=== PATIENT | male | born 1950 | race Caucasian/White ===

== ENCOUNTER 2019-02-06 16:29 | Inpatient (IN) | payer OTHER ==
[~2019-02-06] VITALS: Ht 182.9 cm; Wt 58.1 kg
--- NOTE | 2019-02-06 16:31 | NUR ---
PATIENT BIBA TO BED 1 AT THIS TIME.
[2019-02-06 16:35] VITALS: BP 110/62
--- NOTE | 2019-02-06 16:36 | NUR ---
PT BIBA C/O CP X3 HOURS. PT REPORTS 03/10 SHARP/BURNING LT SIDED CP THAT RADIATES TO BACK.DENIES N/V. PATIENT CONNECTED TO MONITOR AND POSITIONED FOR COMFORT; HOB ELEVATED; BEDRAILS UP X1; BED DOWN.
[2019-02-06] MEDS ORDERED: ASPIRIN 325 MG TAB PO ONE (16:55)
[2019-02-06] MEDS ORDERED: NITROGLYCERIN 0.4 MG TAB SL ONE (16:55)
[2019-02-06 17:18] LABS: BASOPHILS # (AUTO) 0.1 K/uL (0.00-0.22); BASOPHILS % (AUTO) 1.4 % (0.0-2.0); EOSINOPHILS # (AUTO) 0.2 K/uL (0-0.4); HEMATOCRIT 31.9 % (36-52); LYMPHOCYTES # (AUTO) 1.5 K/uL (2.0-11.5); LYMPHOCYTES % (AUTO) 27.9 % (20.5-51.1); MEAN CORPUSCULAR HEMOGLOBIN 22 pg (27-31); MEAN CORPUSCULAR HGB CONC 31 g/dL (33-37); MEAN CORPUSCULAR VOLUME 68.7 fL (80-94); MONOCYTES # (AUTO) 0.5 K/uL (0.8-1.0); MONOCYTES % (AUTO) 8.7 % (1.7-9.3); NEUTROPHILS # (AUTO) 3.3 K/uL (1.8-7.7); PLATELET COUNT (AUTO) 401 K/uL (140-450); RED BLOOD CELL COUNT(AUTO) 4.65 MIL/uL (4.20-6.10); RED CELL DISTRIBUTION WIDTH 21.6 % (11.6-13.7); WHITE BLOOD COUNT (AUTO) 5.5 K/uL (4.8-10.8)
[2019-02-06 17:34] LABS: ALBUMIN 3.2 g/dL (3.4-5.0); ANION GAP 13.6 (8-16); CARBON DIOXIDE 26.4 mmol/L (21-32); CREATININE 0.9 mg/dL (0.7-1.3); TOTAL BILIRUBIN 0.3 mg/dL (0.0-1.0)
[2019-02-06 17:42] LABS: CREATINE KINASE MB 1.4 ng/mL (0-3.6)
[2019-02-06] MEDS ORDERED: NACL 0.9% 1,000 ML IV SCH (18:19)
[2019-02-06] MEDS ORDERED: ZOLPIDEM 5 MG TAB PO PRN (18:20)
[2019-02-06] MEDS ORDERED: ACETAMINOPHEN 325 MG TAB PO PRN (18:20)
[2019-02-06] MEDS ORDERED: HYDROcodone/APAP 5/325 MG 1 TAB TAB PO PRN (18:20)
[2019-02-06] MEDS ORDERED: DOCUSATE SODIUM 100 MG GELCAP PO PRN (18:20)
[2019-02-06] MEDS ORDERED: LORazepam 2 MG/ML VIAL IM/IVP PRN (18:20)
[2019-02-06] MEDS ORDERED: ONDANSETRON 4 MG/2 ML VIAL IM/IVP PRN (18:20)
[2019-02-06] MEDS ORDERED: MORPHINE SULFATE 2 MG/ML SYR IVP PRN (18:20)
--- NOTE | 2019-02-06 18:30 | NUR ---
received bedside report from er nurse. patient is awake, alert and orientedx3. no signs of distress on ra. fall risk protocol in place, patient ambulates w cane. skin is intact. iv on R HAND 22g. clean, dry and intact. tele monitor in place. vitals are b/p 111/66 hr 71 99% ra rr 20 98.3 temp. patient is continent. mrsa done. bed in low position. call light within reach. will continue to monitor
--- NOTE | 2019-02-06 18:30 | NUR ---
Pt transferred to Tele via [employer], report given to Jennifer Mark. Pt stable.
[2019-02-06 18:58] LABS: PROTHROMBIN TIME 10.9 secs (10.8-13.4)
[2019-02-06 19:03] LABS: THYROID STIMULATING HORMONE 2.46 uIU/mL (0.34-3.74)
--- NOTE | 2019-02-06 19:18 | NUR ---
gave bedside report to pantograph setter nurse. patient endorsed in stable condition
--- NOTE | 2019-02-06 19:19 | NUR ---
RECEIVED REPORT FROM AM NURSE ERIN. PT IN BED, AWAKE, ALERT AND ORIENTED. NO VISIBLE SIGNS OF DISTRESS. RT HAND IV 22G INTACT. SKIN INTACT. NO C/O CHEST PAIN. SAFETY PRECAUTIONS IN PLACE, SIDE RAILS UP X 2, BED IN LOW POSITION, YELLOW SOCKS ON. CALL LIGHT WITH IN REACH.
[2019-02-06 20:00] VITALS: BP 119/68
[2019-02-06] MEDS ORDERED: NITROGLYCERIN 0.4 MG TAB SL PRN (20:35)
[2019-02-06] MEDS ORDERED: SIMVASTATIN 20 MG TAB PO SCH (21:00)
--- NOTE | 2019-02-06 21:10 | NUR ---
IV PULLED OUT BY PT, CANNULA INTACT. PT REFUSED IV REINSERTION. WILL INFORM .
--- NOTE | 2019-02-06 21:11 | NUR ---
ZOCOR GIVEN PO, PT TOLERATED WELL.
--- NOTE | 2019-02-06 21:15 | NUR ---
NOTIFIED AND ALLOWS NO REINSERTION OF IV.
--- NOTE | 2019-02-06 22:45 | NUR ---
WENT IN TO TALK TO PT ABOUT THE NEED FOR IV INSERTION. PT COMPLIED. WILL INSERT IV
--- NOTE | 2019-02-06 23:40 | NUR ---
IV INSERTED. 24G TO RT FA, S/L. 3 ATTEMPTS DONE.
[2019-02-07 00:05] VITALS: BP 100/44
--- NOTE | 2019-02-07 00:40 | NUR ---
PT SLEEPING, NO VISIBLE SIGNS OF DISTRESS. RESPIRATIONS EVEN, UNLABORED AND WNL.
--- NOTE | 2019-02-07 02:45 | NUR ---
PT COMPLAINED ABOUT ROOMMATE SNORING IN OTHER BED. WILL TRY TO FIND HIM EAR BUDS.
--- NOTE | 2019-02-07 03:55 | NUR ---
PT MOVED TO 119B.
[2019-02-07 04:05] VITALS: BP 108/58
[2019-02-07 05:20] LABS: APPEARANCE,URINE CLEAR (CLEAR); BILIRUBIN,URINE NEGATIVE (NEGATIVE); BLOOD, URINE NEGATIVE (NEGATIVE); COLOR,URINE YELLOW (YELLOW); LEUKOCYTE ESTERASE ,URINE NEGATIVE (NEGATIVE); NITRITE, URINE NEGATIVE (NEGATIVE); UGLUCOSE NEGATIVE (NEGATIVE)
[2019-02-07 05:23] LABS: BARBITURATE, URINE NEG. ng/ml (NEG <=200); BENZODIAZEPINE, URINE NEG. ng/mL (NEG <=200); CANNABINOID, URINE NEG. ng/mL (NEG <=50); COCAINE, URINE NEG. ng/mL (NEG <=300); OPIATE, URINE NEG. ng/mL (NEG <=2000); PHENCYCLIDINE SCREEN,URINE NEG. ng/mL (NEG <=25)
--- NOTE | 2019-02-07 05:30 | NUR ---
PT SLEEPING COMFORTABLY IN BED. NO S/S OF DISTRESS NOTED. RESPIRATIONS EVEN, UNLABORED, AND WNL. WILL CONTINUE TO MONITOR.
--- NOTE | 2019-02-07 07:27 | NUR ---
REPORT GIVEN TO AM NURSE AT BEDSIDE. PT IN STABLE CONDITION.
--- NOTE | 2019-02-07 07:28 | NUR ---
RECEIVED BEDSIDE REPORT FROM UNDERCOVER OPERATOR NURSE. PATIENT IS AWAKE, ALERT AND ORIENTEDX3. NO SIGNS OF DISTRESS ON RA. SKIN IS INTACT. IV ON R FA 24G SL. CLEAN, DRY AND INTACT. PATIENT AMBULATES W CANE. FALL RISK PROTOCOL IN PLACE. PATIENT IS CONTINENT. TELE MONITOR IN PLACE. BED IN LOW POSITION. CALL LIGHT WITHIN REACH. WILL CONTINUE TO MONITOR THE PATIENT. PATIENT ABLE TO MAKE NEEDS KNOWN.
[2019-02-07 07:39] LABS: BASOPHILS # (AUTO) 0.1 K/uL (0.00-0.22); BASOPHILS % (AUTO) 2.1 % (0.0-2.0); EOSINOPHILS # (AUTO) 0.3 K/uL (0-0.4); EOSINOPHILS % (AUTO) 6.9 % (0.0-4.0); HEMATOCRIT 29.9 % (36-52); HEMOGLOBIN 9.3 g/dL (12.0-18.0); LYMPHOCYTES # (AUTO) 1.9 K/uL (2.0-11.5); LYMPHOCYTES % (AUTO) 48.1 % (20.5-51.1); MEAN CORPUSCULAR HEMOGLOBIN 22 pg (27-31); MEAN CORPUSCULAR HGB CONC 31 g/dL (33-37); MEAN CORPUSCULAR VOLUME 69.1 fL (80-94); MONOCYTES # (AUTO) 0.4 K/uL (0.8-1.0); MONOCYTES % (AUTO) 9.4 % (1.7-9.3); NEUTROPHILS # (AUTO) 1.3 K/uL (1.8-7.7); NEUTROPHILS % (AUTO) 33.5 % (42.2-75.2); PLATELET COUNT (AUTO) 336 K/uL (140-450); RED BLOOD CELL COUNT(AUTO) 4.33 MIL/uL (4.20-6.10); RED CELL DISTRIBUTION WIDTH 21.9 % (11.6-13.7); WHITE BLOOD COUNT (AUTO) 3.9 K/uL (4.8-10.8)
[2019-02-07 08:00] VITALS: BP 113/56
[2019-02-07 08:24] LABS: CHOL/HDL RATIO 3.3 (1-4.5)
[2019-02-07 08:33] LABS: ANION GAP 11.9 (8-16); CARBON DIOXIDE 28.1 mmol/L (21-32); CREATININE 0.9 mg/dL (0.7-1.3)
--- NOTE | 2019-02-07 08:38 | NUR ---
PATIENT HAS BEEN SCREENED AND CATEGORIZED HIGH NUTRITION RISK. PATIENT WILL BE SEEN WITHIN 1-2 DAYS OF ADMISSION. 02/07/19-02/08/[address]
[2019-02-07] MEDS ORDERED: METOPROLOL 50 MG TAB PO SCH (09:00)
[2019-02-07] MEDS ORDERED: LISINOPRIL 5 MG TAB PO SCH (09:00)
[2019-02-07] MEDS: ASPIRIN 81 MG TAB.CHEW PO SCH (09:13)
--- NOTE | 2019-02-07 09:19 | NUR ---
ADMINISTERED MEDS. PATIENT TOLERATED WELL. EDUCATED ON SIDE EFFECTS. WILL CONTINUE TO MONITOR THE PATIENT
--- NOTE | 2019-02-07 10:00 | NUR ---
CALLED [facility] AT [phone]. THEY SAID THEY DONT HAVE THIS PATIENT ON FILE, THEY TRANSFERRED ME TO [facility] AND THEY ALSO DONT HAVE THE PATIENT ON FILE. UNABLE TO INTERROGATE THE PACEMAKER AT THIS TIME. WILL CONTINUE TO CHECK OTHER COMPANIES
[2019-02-07 12:00] VITALS: BP 129/76
--- NOTE | 2019-02-07 12:38 | NUR ---
PT SITTING UP IN BED EATING LUNCH. NO OBVIOUS SIGNS OF DISTRESS AND NO REQUESTS FROM PT.
--- NOTE | 2019-02-07 14:00 | NUR ---
PATIENT IS SLEEPING. NO SIGNS OF DISTRESS. WILL CONTINUE TO MONITOR THE PATIENT
--- NOTE | 2019-02-07 15:30 | NUR ---
02/07/19 RD INITIAL ASSESSMENT COMPLETED PLEASE REFER TO NUTRITION ASSESSMENT UNDER CARE ACTIVITY FOR ESTIMATED NUTRITIONAL NEEDS. 1. CONTINUE CARDIAC DIET TOLERATED 2. RECOMMEND ENSURE BID 3. RECOMMEND MVI 4. HEALTHY EATING EDUCATION WAS PROVIDED 5. RD TO FOLLOW-UP 2-3 DAYS, HIGH RISK ABIDA FLEMING, RD
--- NOTE | 2019-02-07 15:51 | NUR ---
CALLED [facility]. THEY ALSO DONT HAVE THE PATIENT ON FILE FOR PACEMAKER
[2019-02-07 16:00] VITALS: BP 129/71
--- NOTE | 2019-02-07 16:20 | NUR ---
PT SITTING IN BED RESTING WITH NO REQUESTS AT THIS TIME AND NO OBVIOUS SIGNS OF DISTRESS.
--- NOTE | 2019-02-07 16:39 | NUR ---
called [employer] at . they said they will have a rep call me to come and interrogate the pacemaker.
--- NOTE | 2019-02-07 16:50 | NUR ---
JOYCE FROM [employer] CALLED AND WANTED TO KNOW THE REASON FOR INTERROGATION OF THE PACEMAKER. JOYCE SPOKE TO DR NUÑEZ AND DR NUÑEZ EXPLAINED TO HIM THE NEED FOR INTERROGATION, PATIENT IS A POOR HISTORIAN W CHEST PAIN AND LOW EF
--- NOTE | 2019-02-07 19:30 | NUR ---
gave bedside report to debeader nurse. patient endorsed in stable condition. iv was removed by patient, he said accidentally. endorsed debeader to place a new one
--- NOTE | 2019-02-07 19:30 | NUR ---
RECEIVED BEDSIDE REPORT FROM DAY NURSE. PATIENT IS AWAKE, ALERT, AND COOPERATIVE. RESPIRATION EVEN UNLABORED ON ROOM AIR. NO DISTRESS NOTED. SKIN IS WARM AND DRY. PATIENT IS AMBULATORY AND USES ASSISTIVE DEVICE. FALL RISK PROTOCOL IN PLACE. PLAN OF CARE WAS DISCUSSED. ALL SAFETY MEASURES IN PLACE. BED IS AT LOW POSITION. CALL LIGHT WITHIN REACH AND VERBALIZES ITS USE. WILL CONTINUE TO MONITOR.
[2019-02-07 20:00] VITALS: BP 122/64
--- NOTE | 2019-02-07 20:00 | NUR ---
INITIAL ASSESSMENT DONE. VITALS WERE TAKEN. PATIENT CONDITION STABLE. WILL CONTINUE TO MONITOR
--- NOTE | 2019-02-07 21:00 | NUR ---
PATIENT REFUSED IV INSERTION. EDUCATED THE RISK AND BENEFITS OF IT 2X STILL REFUSED
--- NOTE | 2019-02-07 23:00 | NUR ---
PATIENT IN BED WATCHING TV RESPIRATION EVEN UNLABORED ON ROOM AIR. DENIES PAIN. WILL CONTINUE TO MONITOR
[2019-02-08] VITALS: BP 118/65
--- NOTE | 2019-02-08 | NUR ---
VITALS WERE TAKEN. PATIENT CONDITION STABLE. NO DISTRESS NOTED. WILL CONTINUE TO MONITOR
--- NOTE | 2019-02-08 02:00 | NUR ---
PATIENT SLEEPING RESPIRATION EVEN UNLABORED ON ROOM AIR. NO DISTRESS NOTED WILL CONTINUE TO MONITOR
[2019-02-08 04:00] VITALS: BP 116/66
--- NOTE | 2019-02-08 04:00 | NUR ---
VITALS WERE TAKEN PATIENT CONDITION STABLE NO DISTRESS NOTED. WILL CONTINUE TO MONITOR
--- NOTE | 2019-02-08 07:18 | NUR ---
ENDORSED PATIENT TO DAY SHIFT NURSE. PATIENT CONDITION STABLE.
--- NOTE | 2019-02-08 07:19 | NUR ---
RECEIVED BEDSIDE SHIFT REPORT FROM NIGHT NURSE. PT SLEEPING IN BED WITH BREATHING EQUAL AND UNLABORED WITH NO OBVIOUS SIGNS OF DISTRESS. PT AROUSABLE BY VOICE AOX3 UNABLE TO RECALL HOSPITAL LOCATION. PT REMOVED IV PREVIOUS EVENING AND WILL HAVE TO HAVE A NEW ONE PLACED LATER. ALL SAFETY MEASURES IN PLACE, WILL CONTINUE TO MONITOR.
[2019-02-08 07:54] LABS: ANION GAP 10.2 (8-16); CARBON DIOXIDE 26.7 mmol/L (21-32); CREATININE 0.8 mg/dL (0.7-1.3); POTASSIUM 3.9 mmol/L (3.5-5.1)
[2019-02-08 08:00] VITALS: BP 120/70
[2019-02-08 08:09] LABS: BASOPHILS # (AUTO) 0.1 K/uL (0.00-0.22); EOSINOPHILS # (AUTO) 0.3 K/uL (0-0.4); HEMOGLOBIN 9.8 g/dL (12.0-18.0); LYMPHOCYTES # (AUTO) 1.6 K/uL (2.0-11.5); LYMPHOCYTES % (AUTO) 36.3 % (20.5-51.1); MEAN CORPUSCULAR HEMOGLOBIN 21 pg (27-31); MEAN CORPUSCULAR HGB CONC 31 g/dL (33-37); MEAN CORPUSCULAR VOLUME 69.3 fL (80-94); MONOCYTES # (AUTO) 0.4 K/uL (0.8-1.0); NEUTROPHILS % (AUTO) 45.7 % (42.2-75.2); PLATELET COUNT (AUTO) 337 K/uL (140-450); RED BLOOD CELL COUNT(AUTO) 4.62 MIL/uL (4.20-6.10); WHITE BLOOD COUNT (AUTO) 4.3 K/uL (4.8-10.8)
[2019-02-08] MEDS: ASPIRIN 81 MG TAB.CHEW PO SCH (08:09)
[2019-02-08 08:10] LABS: MAGNESIUM 1.7 mg/dL (1.8-2.4); PHOSPHORUS 3.4 mg/dL (2.5-4.9)
[2019-02-08 08:12] LABS: FOLIC ACID 13.9 ng/mL (>3.0)
--- NOTE | 2019-02-08 08:17 | NUR ---
ADMINISTERED AM MEDICATION REVIEWED INDICATION WITH PATIENT, PER DR. NUÑEZ "OKAY" NOT TO INSERT IV LINE WITH PLANS FOR POSSIBLE DISCHARGE TODAY.
[2019-02-08 09:20] LABS: BASOPHILS % (AUTO) 2.1 % (0.0-2.0); EOSINOPHILS % (AUTO) 6.4 % (0.0-4.0); MONOCYTES % (AUTO) 9.5 % (1.7-9.3)
--- NOTE | 2019-02-08 10:15 | NUR ---
NOTIFIED DR. NUÑEZ IN REGARDS TO MAGNESIUM LEVELS 1.7
--- NOTE | 2019-02-08 11:20 | NUR ---
PT LAYING IN BED RESTING WITH NO REQUESTS ASIDE FROM ASKING WHEN LUNCH WILL BE HERE. STATES HE IS COMFORTABLE WAITING FOR LUNCH TO ARRIVE AND DENIES ANY PAIN, DISCOMFORT AND IS FREE OF ANY OBVIOUS SIGNS OF DISTRESS.
[2019-02-08 12:00] VITALS: BP 112/62
[2019-02-08 12:11] LABS: HEPATITIS A ANTIBODY IGM Negative (Negative); HEPATITIS B CORE AB TOTAL Negative (Negative); HEPATITIS B SURFACE ANTIBODY Non Reactive (.); HEPATITIS B SURFACE ANTIGEN Negative (Negative)
[2019-02-08] MEDS ORDERED: MAGNESIUM OXIDE 400 MG TAB PO SCH (12:49)
--- NOTE | 2019-02-08 13:25 | NUR ---
ADMINISTERED MEDICATIONS AND EXPLAINED INDICATION AND SIDE EFFECTS TO PT. PT HAS NO REQUESTS AT THIS TIME AND IS FREE OF OBVIOUS SIGNS OF ACUTE DISTRESS.
--- NOTE | 2019-02-08 15:10 | NUR ---
PT SLEEPING IN BED AROUSED BY OPENING OF DOOR. NO OBVIOUS SIGNS OF DISTRESS AND NO REQUESTS AT THIS TIME.
[2019-02-08 16:02] VITALS: BP 120/74
--- NOTE | 2019-02-08 17:12 | NUR ---
PT RESTING IN BED, NO C/O PAIN OR DISCOMFORT. WILL CONTINUE TO MONITOR.
--- NOTE | 2019-02-08 19:28 | NUR ---
RECEIVED FROM AM RN IN BED SITTING UP AND WATCHING TV. CALM AND QUIET. ABLE TO VERBALIZE NEEDS WELL IN [place]. TELEMETRY MONITORING AT THIS TIME. PACING IN MONITOR. SKIN INTACT. DX. OF CHEST PAIN. CARE PLANS FOR THE NIGHT DISCUSSED WITH HIM AND ORIENTED TO CALL LIGHT USE. PLACED ON BED ALARM .
--- NOTE | 2019-02-08 19:28 | NUR ---
ENDORSED POC TO HAM CLERK RN. PT IN STABLE CONDITION.
--- NOTE | 2019-02-08 19:56 | NUR ---
PT. HAD A FIT AND SHOUTED HE DOES NOT WANT ANY BED ALARM ON BED AND NO TELEMETRY MONITORING. PT. THREW HIS TELE BOX ON THE FLOOR. "NO MONITOR" IN LOUD VOICE. INFORMED RESIDENT MD STORY RE: PT. DON'T WANT INSPECTOR CRYSTAL. AWARE AND STATED "OK"
[2019-02-08 20:00] VITALS: BP 122/68
[2019-02-09 00:12] VITALS: BP 118/64
--- NOTE | 2019-02-09 00:15 | NUR ---
PT. AWAKE AND PROVIDED WITH SNACK REQUESTED. REFUSED TELEMETRY MONITORING STILL.
--- NOTE | 2019-02-09 02:10 | NUR ---
CHECKED ON PT. SLEEPING WELL. CALL LIGHT WITH IN REACH.
--- NOTE | 2019-02-09 04:00 | NUR ---
SLEEPING. NO RESTLESSNESS. CALL LIGHT WITH IN REACH.
--- NOTE | 2019-02-09 07:07 | NUR ---
ENDORSED TO THE NEXT RN FOR CONTINUITY OF CARE.
--- NOTE | 2019-02-09 07:08 | NUR ---
RECEIVED ENDORSEMENT FROM CIVIL DIVISION DEPUTY SHERIFF NURSE. PATIENT IS AAOX4. RESPIRATIONS ARE EVEN AND UNLABORED ON ROOM AIR. DENIES ANY PAIN AT THIS TIME. PT REFUSED TELEMETRY BOX. PLAN OF CARE WAS REVIEWED WITH PT. PT VERBALIZED UNDERSTANDING. SAFETY MEASURES IN PLACE, CALL LIGHT WITHIN REACH. WILL CONTINUE TO MONITOR.
[2019-02-09 07:51] LABS: ANION GAP 12.9 (8-16); CARBON DIOXIDE 25.9 mmol/L (21-32); CREATININE 0.7 mg/dL (0.7-1.3); POTASSIUM 3.8 mmol/L (3.5-5.1)
[2019-02-09 07:53] LABS: BASOPHILS # (AUTO) 0.1 K/uL (0.00-0.22); BASOPHILS % (AUTO) 1.7 % (0.0-2.0); EOSINOPHILS # (AUTO) 0.2 K/uL (0-0.4); HEMATOCRIT 34.3 % (36-52); HEMOGLOBIN 10.6 g/dL (12.0-18.0); LYMPHOCYTES # (AUTO) 1.7 K/uL (2.0-11.5); LYMPHOCYTES % (AUTO) 38.7 % (20.5-51.1); MEAN CORPUSCULAR HEMOGLOBIN 21 pg (27-31); MEAN CORPUSCULAR HGB CONC 31 g/dL (33-37); MEAN CORPUSCULAR VOLUME 69.2 fL (80-94); MONOCYTES # (AUTO) 0.4 K/uL (0.8-1.0); NEUTROPHILS % (AUTO) 45.3 % (42.2-75.2); PLATELET COUNT (AUTO) 294 K/uL (140-450); RED BLOOD CELL COUNT(AUTO) 4.96 MIL/uL (4.20-6.10); RED CELL DISTRIBUTION WIDTH 21.5 % (11.6-13.7); WHITE BLOOD COUNT (AUTO) 4.3 K/uL (4.8-10.8)
[2019-02-09 08:00] VITALS: BP 120/60
[2019-02-09 08:01] LABS: MAGNESIUM 2.1 mg/dL (1.8-2.4); PHOSPHORUS 3.7 mg/dL (2.5-4.9)
[2019-02-09] MEDS: ASPIRIN 81 MG TAB.CHEW PO SCH (08:40)
[2019-02-09 08:52] LABS: EOSINOPHILS % (AUTO) 4.9 % (0.0-4.0); MONOCYTES % (AUTO) 9.4 % (1.7-9.3)
[2019-02-09 12:00] VITALS: BP 111/61
--- NOTE | 2019-02-09 14:46 | NUR ---
ASKED FRONT END SOFTWARE ENGINEER HOMERO FOR BUS PASS- PT IS HOMELESS AND REQUESTING HELP WITH TRANSPORTATION AFTER D/C. WILL CALL [facility] FOR FOOD FOR D/C.
--- NOTE | 2019-02-09 14:47 | NUR ---
GAVE PT DISCHARGE INSTRUCTIONS AND ANSWERED ALL OF PT QUESTIONS. MEDICATION RECONCILIATION GIVEN. INSTRUCTED TO FOLLOW UP WITH PRIMARY WITHIN 3-5 DAYS AND FOLLOW UP WITH ONCOLOGIST WELL. PT IN STABLE CONDITION WAITING FOR HOMELESS FOOD PACKET AND BUS PASS. Addendum: 02/09/19 at 1452 by La Nava RN PT VERBALIZED COMPLETE UNDERSTANDING OF ALL DISCHARGE TEACHING.
== END 2019-02-09 15:40 | disposition home or self-care (01) | DRG 206 ==
LOC: MED 16:29 → MTU 18:06
PROVIDERS: ADMIT General Practice; ATTEND General Practice
DX: M94.0 Chondrocostal junction syndrome [Tietze] (principal); E44.0 Moderate protein-calorie malnutrition; Z68.1 Body mass index [BMI] 19.9 or less, adult; I50.32 Chronic diastolic (congestive) heart failure; D64.9 Anemia, unspecified; E87.8 Other disorders of electrolyte and fluid balance, not elsewhere classified; E83.42 Hypomagnesemia; I34.0 Nonrheumatic mitral (valve) insufficiency; D72.819 Decreased white blood cell count, unspecified; Z59.0 Homelessness; Z87.891 Personal history of nicotine dependence; Z95.0 Presence of cardiac pacemaker; I25.2 Old myocardial infarction; Z85.118 Personal history of other malignant neoplasm of bronchus and lung; Z85.47 Personal history of malignant neoplasm of testis; Z90.49 Acquired absence of other specified parts of digestive tract
CPT/HCPCS: 36415; 71045; 80048; 80053; 80305; 81003; 82550; 82553; 82607; 82728; 82746; 83036; 83540; 83690; 83735; 83880; 84100; 84134; 84443; 84484; 85025; 85045; 85610; 85730; 86704; 86706; 86708; 86709; 86803; 87081; 87340; 93005; 99285; J7030; Q0092

== ENCOUNTER 2019-02-09 23:21 | Emergency (ER) | payer OTHER ==
[~2019-02-09] VITALS: Ht 182.9 cm; Wt 58.5 kg
[2019-02-09 23:25] VITALS: BP 104/68
--- NOTE | 2019-02-09 23:25 | NUR ---
68 y/o M biba with c/o L chest pain x2 hours. AAOx4. 7/10 pain, sharp and burning. pain radiates to L upper upper and shoulder. pacemaker noted to l upper chest. HR 68, Heart sounds present. cap refill <3. no JVD noted. Pt previously admitted and was discharged today from the hospital. ERMD notified. Will continue to monitor.
--- NOTE | 2019-02-09 23:25 | NUR ---
PATIENT BIB EMS TO ER BED 6.
--- NOTE | 2019-02-09 23:32 | NUR ---
EKG PERFORMED AT BEDSIDE
[2019-02-09 23:56] LABS: BASOPHILS # (AUTO) 0.1 K/uL (0.00-0.22); BASOPHILS % (AUTO) 1.2 % (0.0-2.0); EOSINOPHILS # (AUTO) 0.1 K/uL (0-0.4); EOSINOPHILS % (AUTO) 1.4 % (0.0-4.0); HEMATOCRIT 32.5 % (36-52); HEMOGLOBIN 9.9 g/dL (12.0-18.0); LYMPHOCYTES # (AUTO) 1.6 K/uL (2.0-11.5); LYMPHOCYTES % (AUTO) 22.1 % (20.5-51.1); MEAN CORPUSCULAR HEMOGLOBIN 21 pg (27-31); MEAN CORPUSCULAR HGB CONC 31 g/dL (33-37); MEAN CORPUSCULAR VOLUME 68.9 fL (80-94); MONOCYTES # (AUTO) 0.5 K/uL (0.8-1.0); MONOCYTES % (AUTO) 6.3 % (1.7-9.3); PLATELET COUNT (AUTO) 335 K/uL (140-450); RED BLOOD CELL COUNT(AUTO) 4.71 MIL/uL (4.20-6.10); RED CELL DISTRIBUTION WIDTH 21.5 % (11.6-13.7); WHITE BLOOD COUNT (AUTO) 7.2 K/uL (4.8-10.8)
[2019-02-10 00:18] LABS: ALBUMIN 3.2 g/dL (3.4-5.0); ANION GAP 12.9 (8-16); CARBON DIOXIDE 26.5 mmol/L (21-32); CREATININE 0.9 mg/dL (0.7-1.3); POTASSIUM 3.4 mmol/L (3.5-5.1); TOTAL BILIRUBIN 0.2 mg/dL (0.0-1.0)
--- NOTE | 2019-02-10 00:30 | NUR ---
Pt awake and laying supine. VSS at this time. Will continue to monitor.
[2019-02-10] MEDS ORDERED: KETOROLAC 30 MG/ML VIAL IVP ONE (00:55)
--- NOTE | 2019-02-10 01:30 | NUR ---
pt asleep, visible chest rise and fall. bedrails x2 up,bed in lowest postion. will continue to monitor.
--- NOTE | 2019-02-10 01:35 | NUR ---
LAB AT BEDSIDE.
--- NOTE | 2019-02-10 01:42 | NUR ---
EKG PERFORMED AT BEDSIDE
--- NOTE | 2019-02-10 02:50 | NUR ---
Found pt walking around room. Pt took out IV line, when asked about it, stated, " it hurt so I just took it out." EKG leads, pulse ox, and BP cuff found on the floor. Explained to pt the importance of monitoring system. Pt reattached to monitor. VSS at this time. Will continue to monitor.
[2019-02-10 03:57] VITALS: BP 114/57
--- NOTE | 2019-02-10 03:58 | NUR ---
Pt laying down in bed. VSS at this time. Will continue to monitor.
--- NOTE | 2019-02-10 04:48 | NUR ---
pt asleep. visible chest rise and fall. arousable to name and light touch. bed in lowest position. will continue to monitor.
--- NOTE | 2019-02-10 05:13 | NUR ---
Patient discharged with v/s stable. Written and verbal after care instructions given and explained. Patient alert, oriented and verbalized understanding of instructions. Ambulatory with steady gait. All questions addressed prior to discharge. ID band removed. Patient advised to follow up with PMD. Rx of Motrin given. Patient educated on indication of medication including possible reaction and side effects. Opportunity to ask questions provided and answered. Bus pass and homeless resources provided to patient.
== END 2019-02-10 05:13 | disposition home or self-care (01) ==
LOC: MED 23:21
DX: R07.89 Other chest pain (principal); R06.02 Shortness of breath; I50.9 Heart failure, unspecified; I25.10 Atherosclerotic heart disease of native coronary artery without angina pectoris; R79.0 Abnormal level of blood mineral; Z85.118 Personal history of other malignant neoplasm of bronchus and lung; Z59.0 Homelessness
CPT/HCPCS: 36415; 71045; 80053; 83735; 83880; 84484; 85025; 93005; 96374; 99284; J1885; Q0092

== ENCOUNTER 2019-08-29 07:00 | Inpatient (IN) | payer OTHER ==
[~2019-08-29] VITALS: Ht 182.9 cm; Wt 58.5 kg
[2019-08-29 07:01] VITALS: BP 138/70
[2019-08-29] MEDS ORDERED: ASPIRIN 81 MG TAB.CHEW PO ONE (07:05)
[2019-08-29] MEDS ORDERED: NACL 0.9% 1,000 ML IV ONE (07:05)
--- NOTE | 2019-08-29 07:10 | NUR ---
69 Y/O MALE BIBA ALC C/O CHEST PAIN. PT STATES HE WAS SEEN LAST NIGHT AT [facility] FOR SAME PAIN. 05/10 PAIN NEXT TO PACEMAKER THAT RADIATES TO BACK. PACEMAKER NOTED IN THE UPPER LEFT CHEST. HR AT 75BPM; DENIES SOB. A/OX4; FOLLOWS COMMANDS. BREATHING IS UNLABORED AND SYMMETRICAL. DENIES N/V/D. HAND PIPE FITTER SUPERVISOR MAINTENANCE STRONG. ERMD MADE AWARE. SIDE RAILSX1. PLACED ON COST ESTIMATOR. MEDHX: ANXIETY, PACEMAKER, ARTHRITIS, CA RX:DENIES NKDA
--- NOTE | 2019-08-29 07:12 | NUR ---
RECEIVED REPORT FROM ADÁN PLASENCIA.
--- NOTE | 2019-08-29 07:26 | NUR ---
EMT AT BEDSIDE FOR EKG.
--- NOTE | 2019-08-29 07:27 | NUR ---
DR. NELSON EVALUATING PT AT BEDSIDE.
[2019-08-29 08:06] LABS: BASOPHILS % (AUTO) 0.2 % (0.0-2.0); EOSINOPHILS # (AUTO) 0.4 K/uL (0-0.4); HEMATOCRIT 33.6 % (36-52); HEMOGLOBIN 10.2 g/dL (12.0-18.0); LYMPHOCYTES # (AUTO) 1.3 K/uL (2.0-11.5); LYMPHOCYTES % (AUTO) 32.5 % (20.5-51.1); MEAN CORPUSCULAR HEMOGLOBIN 23 pg (27-31); MEAN CORPUSCULAR HGB CONC 31 g/dL (33-37); MEAN CORPUSCULAR VOLUME 73.8 fL (80-94); MONOCYTES # (AUTO) 0.3 K/uL (0.8-1.0); MONOCYTES % (AUTO) 8.3 % (1.7-9.3); PLATELET COUNT (AUTO) 482 K/uL (140-450); RED BLOOD CELL COUNT(AUTO) 4.55 MIL/uL (4.20-6.10); RED CELL DISTRIBUTION WIDTH 18.1 % (11.6-13.7); WHITE BLOOD COUNT (AUTO) 4.1 K/uL (4.8-10.8)
[2019-08-29 08:13] LABS: ANION GAP 14.7 (8-16); CARBON DIOXIDE 26.6 mmol/L (21-32); CREATININE 0.9 mg/dL (0.7-1.3); POTASSIUM 4.3 mmol/L (3.5-5.1)
[2019-08-29] MEDS ORDERED: KETOROLAC 30 MG/ML VIAL IVP ONE (08:15)
[2019-08-29 08:18] LABS: ALBUMIN 3.4 g/dL (3.4-5.0); TOTAL BILIRUBIN 0.3 mg/dL (0.0-1.0)
[2019-08-29] MEDS ORDERED: ASPI-1718 PO (08:57)
--- NOTE | 2019-08-29 09:33 | NUR ---
OBTAINED LEFT ELBOW WOUND CULTURE PER REQUEST DR. BURKETT.
--- NOTE | 2019-08-29 10:05 | NUR ---
Patient will be admitted to care of DR. CABALLERO. Admited to TELE. Will go to room 107B. Belongings list completed. Report to ANGEL LUIS PLASENCIA.
[2019-08-29] MEDS ORDERED: NACL 0.9% 1,000 ML IV SCH (10:53)
[2019-08-29 10:55] VITALS: BP 118/53
[2019-08-29] MEDS ORDERED: HYDROcodone/APAP 5/325 MG 1 TAB TAB PO PRN (10:55)
[2019-08-29] MEDS ORDERED: MORPHINE SULFATE 2 MG/ML SYR IVP PRN (10:55)
[2019-08-29] MEDS ORDERED: DOCUSATE SODIUM 100 MG GELCAP PO PRN (10:55)
[2019-08-29] MEDS ORDERED: ZOLPIDEM 5 MG TAB PO PRN (10:55)
[2019-08-29] MEDS ORDERED: ACETAMINOPHEN 325 MG TAB PO PRN (10:55)
[2019-08-29] MEDS ORDERED: LORazepam 2 MG/ML VIAL IM/IVP PRN (10:55)
[2019-08-29] MEDS ORDERED: ONDANSETRON 4 MG/2 ML VIAL IM/IVP PRN (10:55)
[2019-08-29] MEDS ORDERED: NITROGLYCERIN 0.4 MG TAB SL PRN (11:05)
--- NOTE | 2019-08-29 11:05 | NUR ---
PATIENT ARRIVED ON THE UNIT. RECEIVED BEDSIDE REPORT FROM DIRECTOR INTELLIGENCE ANALYSIS PROGRAMS MARCELA. PT HAS LEFT AC IV 22G. PT IS STATING WNL ON ROOM AIR PT AWAKE AND ALERT AND AMBULATES FROM WHEEL CHAIR TO BED. ORIENTED PT TO ROOM AND UNIT PERFORMED ADMISSION ASSESSMENT. OBTAINED MRSA NARES CULTURE. ALL SAFETY MEASURES ARE IN PLACE WILL CONTINUE TO MONITOR.
[2019-08-29 11:28] VITALS: BP 142/75
--- NOTE | 2019-08-29 11:43 | NUR ---
PT REMOVED IV. PT STATED HE DIDNT WANT IV FLUIDS. SPOKE WITH PATIENT AND DR. BURKETT SPOKE WITH THE PATIENTS AND INFORMED HIM OF THE NEED FOR IV FLUIDS AND ANTIBIOTICS. PT AGREED TO COOPERATE AND ALLOWED PLACEMENT OF ANOTHER IV.
[2019-08-29 12:04] LABS: MAGNESIUM 1.8 mg/dL (1.8-2.4); PHOSPHORUS 3.2 mg/dL (2.5-4.9); PROTHROMBIN TIME 10.4 secs (10.8-13.4); THYROID STIMULATING HORMONE 0.81 uIU/mL (0.34-3.74)
--- NOTE | 2019-08-29 12:44 | NUR ---
PT PULLED OUT HIS IV IV TIP INTACT. PT TOOK OFF HIS TELE MONITOR. WENT INTO TO QUESTION PATIENT PT STATED HE IS LEAVING HE IS TIRED OF BEING STUCK BY NEEDLES AND BOTHERED. INFORMED PT PHYSICIAN DR. BURKETT AT BEDSIDE SPOKE WITH THE PATIENT AND INFORMED THE PATIENT OF THE RISK OF LEAVING BEFORE HAVING HIS ANTIBIOTICS AND HAVING HIS LAB VALUES BACK. PT AMBULATED OFF THE UNIT. WITH ALL PERSONAL BELONGINGS. ID BAND REMOVED.
--- NOTE | 2019-08-29 12:54 | NUR ---
AMA FORM FILED AND COMPLETED
--- NOTE | 2019-08-29 12:59 | NUR ---
*S.T. bedside swallow eval completed* Pt presents w/ adequate oropharyngeal swallow function for textures given. Despite being edentulous, pt is able to gum up solids w/o difficulty. No overt s/s aspiration observed. Recommend: 1) Continue regular diet textures, thin liquids okay. 2) P.O. meds okay whole as tolerated. Pt does not demonstrate clinical dysphagia and is able to self-feed w/o difficulty. No further swallow tx indicated at this time. DC to [facility]. Endorsed to ERINN Duron at bedside. Time 2929-2206
[2019-08-29] MEDS ORDERED: CLINDAMYCIN 600 MG in DEXTROSE 5% 50 ML IV SCH (13:00)
[2019-08-29] MEDS ORDERED: SIMVASTATIN 20 MG TAB PO SCH (21:00)
[2019-08-29] MEDS ORDERED: METOPROLOL 50 MG TAB PO SCH (21:00)
[2019-08-30] MEDS ORDERED: ASPIRIN 81 MG TAB.CHEW PO SCH (09:00)
[2019-08-30] MEDS ORDERED: LACTOBACILLUS RHAMNOSUS GG 1 EACH CAP PO SCH (09:00)
[2019-08-30] MEDS ORDERED: LISINOPRIL 5 MG TAB PO SCH (09:00)
== END 2019-08-29 12:45 | disposition left against medical advice (07) | DRG 205 ==
LOC: MED 07:00 → MTU 09:04
PROVIDERS: ADMIT General Practice; ATTEND General Practice
DX: M94.0 Chondrocostal junction syndrome [Tietze] (principal); E43 Unspecified severe protein-calorie malnutrition; Z68.1 Body mass index [BMI] 19.9 or less, adult; K21.9 Gastro-esophageal reflux disease without esophagitis; I50.9 Heart failure, unspecified; I25.10 Atherosclerotic heart disease of native coronary artery without angina pectoris; D50.9 Iron deficiency anemia, unspecified; S51.002A Unspecified open wound of left elbow, initial encounter; X58.XXXA Exposure to other specified factors, initial encounter; Y93.89 Activity, other specified; Y92.89 Other specified places as the place of occurrence of the external cause; Z85.118 Personal history of other malignant neoplasm of bronchus and lung; Z85.47 Personal history of malignant neoplasm of testis; Z95.0 Presence of cardiac pacemaker; Z59.0 Homelessness; Y99.8 Other external cause status; Z53.29 Procedure and treatment not carried out because of patient's decision for other reasons
CPT/HCPCS: 36415; 71045; 80053; 82607; 82728; 82746; 83036; 83540; 83690; 83735; 83880; 84100; 84134; 84443; 84484; 85025; 85045; 85610; 85730; 87040; 87070; 87081; 87186; 92610; 93005; 96361; 96374; 99285; J3490; J7060; Q0092

== ENCOUNTER 2019-08-29 15:47 | Emergency (ER) | payer OTHER ==
[~2019-08-29] VITALS: Ht 172.7 cm; Wt 63.2 kg
[~2019-08-29 15:47] MED LIST: ASPI-1718 PO
--- NOTE | 2019-08-29 15:50 | NUR ---
MIGUEL ANGEL ZARCO ALS TO ER BED 06
[2019-08-29 15:51] VITALS: BP 111/64
--- NOTE | 2019-08-29 16:02 | NUR ---
PT BIBA C/O LEFT-SIDED CP RADIATING LEFT-SIDED BACK AND LEFT ARM FOR ABOUT 3 HOURS. PT ALSO REPORTS HAVING NAUSEA AND VOMITIBG. 0.4 NTG GIVEN BY LIFT ELECTRICIAN ON THE AMBULANCE WITH RELIEF. PATIENT STATES PAIN OF 5/10 AT THIS TIME; VSS; PATIENT POSITIONED FOR COMFORT; HOB ELEVATED; BEDRAILS UP X1; BED DOWN. ER MD MADE AWARE OF PT STATUS.
[2019-08-29 16:16] VITALS: BP 110/59
--- NOTE | 2019-08-29 16:16 | NUR ---
Patient discharged with v/s stable. Written and verbal after care instructions given and explained. Patient verbalized understanding. Ambulatory with steady gait. All questions addressed prior to discharge. Advised to follow up with PMD. Thornton provided to pt at this time.
== END 2019-08-29 16:16 | disposition home or self-care (01) ==
LOC: MED 15:47
DX: R07.9 Chest pain, unspecified (principal); Z79.82 Long term (current) use of aspirin; Z87.898 Personal history of other specified conditions
CPT/HCPCS: 93005; 99283

== ENCOUNTER 2019-08-29 18:38 | Inpatient (IN) | payer OTHER ==
[~2019-08-29] VITALS: Ht 172.7 cm; Wt 63.0 kg
[2019-08-29 18:39] VITALS: BP 111/68
--- NOTE | 2019-08-29 18:42 | NUR ---
TO LOBBY PER DR BAEZ.
--- NOTE | 2019-08-29 18:44 | NUR ---
NO EKG REQUIRED PER DR BAEZ.
--- NOTE | 2019-08-29 19:35 | NUR ---
PT AMBULATED TO BED 12.
--- NOTE | 2019-08-29 19:40 | NUR ---
LAYING IN BED IN SEMI FOWLERS. AWAKE, ALERT. CALM, COOPERATIVE. IN GOWN, ON RECEIVING LEAD WITH VSS. SPEAKING WITHOUT DIFFICULTY. BREATHING EVEN, UNLABORED. NO ACUTE S/SX DISTRESS AT THIS TIME.
[2019-08-29] MEDS ORDERED: MORPHINE SULFATE 2 MG/ML SYR IVP ONE (19:45)
[2019-08-29] MEDS ORDERED: ASPIRIN 325 MG TAB PO ONE (19:45)
--- NOTE | 2019-08-29 19:45 | NUR ---
DR. REID BEGUM AT BEDSIDE.
--- NOTE | 2019-08-29 19:47 | NUR ---
EKG IN PROGRESS BY EMT. PT PLACED IN GOWN, ON LEGAL ENTITY CONTROLLER.
--- NOTE | 2019-08-29 19:50 | NUR ---
PHLEB AT BEDSIDE DRAWING LABS.
--- NOTE | 2019-08-29 20:24 | NUR ---
PT RECEIVED 2 MG IVP MORPHINE FOR 05/10 ARTHRITIS PAIN. WILL REASSESS.
--- NOTE | 2019-08-29 20:25 | NUR ---
MEDICATIONS ADMINISTERED BY ERINN KHAN. ENTERED IN ERROR UNDER ERINN CHRISTIANSON.
--- NOTE | 2019-08-29 20:29 | NUR ---
URINE COLLECTED VIA URINAL AT BEDSIDE.
[2019-08-29 20:35] LABS: CARBON DIOXIDE 25.2 mmol/L (21-32); POTASSIUM 4.2 mmol/L (3.5-5.1)
[2019-08-29 20:36] LABS: TOTAL BILIRUBIN 0.2 mg/dL (0.0-1.0)
[2019-08-29 20:40] LABS: HEMOGLOBIN 9.2 g/dL (12.0-18.0); MEAN CORPUSCULAR HEMOGLOBIN 23 pg (27-31); MEAN CORPUSCULAR HGB CONC 31 g/dL (33-37); MEAN CORPUSCULAR VOLUME 73.6 fL (80-94); PLATELET COUNT (AUTO) 473 K/uL (140-450); RED BLOOD CELL COUNT(AUTO) 4.08 MIL/uL (4.20-6.10); RED CELL DISTRIBUTION WIDTH 18.4 % (11.6-13.7); WHITE BLOOD COUNT (AUTO) 4.5 K/uL (4.8-10.8)
[2019-08-29 20:41] LABS: BASOPHILS # (AUTO) 0.1 K/uL (0.00-0.22); BASOPHILS % (AUTO) 1.8 % (0.0-2.0); EOSINOPHILS # (AUTO) 0.3 K/uL (0-0.4); LYMPHOCYTES # (AUTO) 1.1 K/uL (2.0-11.5); LYMPHOCYTES % (AUTO) 23.5 % (20.5-51.1); MONOCYTES # (AUTO) 0.4 K/uL (0.8-1.0); MONOCYTES % (AUTO) 8.9 % (1.7-9.3); NEUTROPHILS # (AUTO) 2.7 K/uL (1.8-7.7); NEUTROPHILS % (AUTO) 58.8 % (42.2-75.2)
[2019-08-29 20:48] LABS: CREATININE 0.9 mg/dL (0.7-1.3)
[2019-08-29 20:52] LABS: BARBITURATE, URINE NEGATIVE ng/ml (NEG <=200)
[2019-08-29 20:53] LABS: BENZODIAZEPINE, URINE NEGATIVE ng/mL (NEG <=200); CANNABINOID, URINE NEGATIVE ng/mL (NEG <=50); COCAINE, URINE NEGATIVE ng/mL (NEG <=300); OPIATE, URINE NEGATIVE ng/mL (NEG <=2000); PHENCYCLIDINE SCREEN,URINE NEGATIVE ng/mL (NEG <=25)
--- NOTE | 2019-08-29 21:00 | NUR ---
REPORTS RELIEF IN PAIN; 3/10. MORPHINE AND ASPIRIN EFFECTIVE.
[2019-08-29] MEDS ORDERED: HYDROcodone/APAP 7.5/325 MG 1 TAB PO PRN (21:20)
[2019-08-29] MEDS ORDERED: DOCUSATE SODIUM 100 MG GELCAP PO PRN (21:20)
[2019-08-29] MEDS ORDERED: ACETAMINOPHEN 325 MG TAB PO PRN (21:20)
[2019-08-29] MEDS ORDERED: ONDANSETRON 4 MG/2 ML VIAL IM/IVP PRN (21:20)
[2019-08-29] MEDS ORDERED: INSULIN LISPRO SLIDING SCALE 100 UNITS/ML VIAL SUBQ PRN (21:45)
[2019-08-29] MEDS ORDERED: DEXTROSE 50% 50 ML SYR IVP PRN (21:45)
[2019-08-29] MEDS ORDERED: NITROGLYCERIN 0.4 MG TAB SL PRN (21:50)
--- NOTE | 2019-08-29 21:55 | NUR ---
MULTIPLE ATTEMPTS IN BILAT ARMS FOR IV AFTER PT RIPPED OUT FIRST IV. PT STATES THE IV WAS UNCOMFORTABLE AND TOOK IT OUT HIMSELF WITHOUT INFORMING STAFF. ADDITIONAL ATTEMPTS MADE WITHOUT SUCCESS. COPIOUS SCAR TISSUE FOUND THROUGHOUT BILAT UPPER EXTREMITIES. PT REFUSING FURTHER ATTEMPTS AT THIS TIME. [facility] CHARGE NURSE TALISHA INFORMED.
--- NOTE | 2019-08-29 22:20 | NUR ---
RECEIVED PATIENT VIA GURNEY FROM ED. PATIENT IS AMBULATORY. BEDSIDE REPORT GIVEN BY ERIN. PT IS THAI SPEAKING. NO SOB OR DISTRESS NOTED. NOTED WITH LEFT ELBOW SCARRING AROUND A METAL PLATE FROM PREVIOUS ACCIDENT. NO BLEEDING NOTED. ORIENTED TO ROOM, BOARD UPDATED. MRSA SWAB DONE AND TAKEN TO LAB. BED IN LOW. BELONGINGS CHECKLIST SIGNED. CALL LIGHT PLACED WITHIN PATIENT REACH. WILL CONTINUE TO MONITOR PATIENT.
--- NOTE | 2019-08-29 22:20 | NUR ---
Patient will be admitted to care of Dr. Thomas. Admited to TELE. Will go to room 112B. Belongings list completed. Report to ERINN Plunkett.
[2019-08-29 22:23] LABS: APPEARANCE,URINE CLEAR (CLEAR); BILIRUBIN,URINE NEGATIVE (NEGATIVE); BLOOD, URINE NEGATIVE (NEGATIVE); COLOR,URINE YELLOW (YELLOW); LEUKOCYTE ESTERASE ,URINE NEGATIVE (NEGATIVE); NITRITE, URINE NEGATIVE (NEGATIVE); UGLUCOSE NEGATIVE (NEGATIVE)
[2019-08-29] MEDS: NACL 0.9% 1,000 ML IV SCH (22:59)
[2019-08-30 00:10] VITALS: BP 112/49
--- NOTE | 2019-08-30 00:10 | NUR ---
VITAL SIGNS TAKEN. VISIBLE CHEST RISE AND FALL NOTED. CALL LIGHT WITHIN PATIENT REACH. WILL CONTINUE TO MONITOR PATIENT.
--- NOTE | 2019-08-30 02:00 | NUR ---
ROUNDS DONE. VISIBLE CHEST RISE AND FALL NOTED. WILL CONTINUE TO MONITOR PATIENT.
--- NOTE | 2019-08-30 04:10 | NUR ---
VITAL SIGNS TAKEN AT THIS TIME. NO DISTRESS NOTED. WILL CONTINUE TO MONITOR PATIENT.
[2019-08-30 04:22] VITALS: BP 119/57
[2019-08-30] MEDS: BLOOD GLUCOSE MONITORING 1 DEV DEV FS SCH ×4 (06:45→21:06)
[2019-08-30] MEDS: NACL 0.9% 1,000 ML IV SCH ×2 (06:45→10:46)
--- NOTE | 2019-08-30 06:45 | NUR ---
BLOOD GLUCOSE RESULT OF 72. PATIENT STABLE AT THIS TIME. OFFERED A SMALL PACK OF ORANGE JUICE. WILL CONTINUE TO MONITOR PATIENT.
--- NOTE | 2019-08-30 06:51 | NUR ---
PATIENT IN STABLE CONDITION. SAFETY MEASURES IN PLACE. CALL LIGHT WITHIN PATIENT REACH. WILL ENDORSE TO AM SHIFT NURSE FOR CONTINUITY OF CARE.
--- NOTE | 2019-08-30 06:55 | NUR ---
PATIENT HAS BEEN SCREENED AND CATEGORIZED HIGH NUTRITION RISK. PATIENT WILL BE SEEN WITHIN 1-2 DAYS OF ADMISSION. 08/31/19-09/01/19 JOSUÉ MCINTOSH MS, RDN
[2019-08-30 07:08] LABS: BASOPHILS # (AUTO) 0.1 K/uL (0.00-0.22); BASOPHILS % (AUTO) 2.5 % (0.0-2.0); EOSINOPHILS # (AUTO) 0.5 K/uL (0-0.4); EOSINOPHILS % (AUTO) 10.7 % (0.0-4.0); HEMATOCRIT 28.7 % (36-52); HEMOGLOBIN 8.8 g/dL (12.0-18.0); LYMPHOCYTES # (AUTO) 1.6 K/uL (2.0-11.5); LYMPHOCYTES % (AUTO) 36.7 % (20.5-51.1); MEAN CORPUSCULAR HEMOGLOBIN 23 pg (27-31); MEAN CORPUSCULAR HGB CONC 31 g/dL (33-37); MONOCYTES # (AUTO) 0.4 K/uL (0.8-1.0); MONOCYTES % (AUTO) 8.4 % (1.7-9.3); NEUTROPHILS # (AUTO) 1.8 K/uL (1.8-7.7); NEUTROPHILS % (AUTO) 41.7 % (42.2-75.2); PLATELET COUNT (AUTO) 449 K/uL (140-450); RED BLOOD CELL COUNT(AUTO) 3.88 MIL/uL (4.20-6.10); RED CELL DISTRIBUTION WIDTH 18.2 % (11.6-13.7); WHITE BLOOD COUNT (AUTO) 4.3 K/uL (4.8-10.8)
--- NOTE | 2019-08-30 07:15 | NUR ---
RECEIVED REPORT FROM NIGHT NURSE. PT WAS RESTING IN BED BUT AWOKE WHEN WE CAME IN. IV RUNNING ON NS AT 100 ML/HR, L FOREARM 24 G, PT DENIES COMPLAINS OF CHEST PAIN, LEFT ELBOW PROTRUSION OPEN TO AIR. PT IS CURRENTLY STABLE, RESPIRATION ARE EVEN AND UNLABORED ON ROOM AIR. CALL LIGHT WITHIN REACH.
[2019-08-30 07:19] LABS: ANION GAP 12.1 (8-16); CARBON DIOXIDE 25.8 mmol/L (21-32); CREATININE 0.7 mg/dL (0.7-1.3); POTASSIUM 3.9 mmol/L (3.5-5.1)
[2019-08-30 07:22] LABS: MAGNESIUM 1.6 mg/dL (1.8-2.4); PHOSPHORUS 3.5 mg/dL (2.5-4.9)
[2019-08-30 08:02] VITALS: BP 123/68
[2019-08-30] MEDS: METOPROLOL 25 MG TAB PO SCH ×2 (08:28→20:24)
[2019-08-30] MEDS ORDERED: ATORVASTATIN 20 MG TAB PO SCH (09:00)
[2019-08-30] MEDS ORDERED: LISINOPRIL 5 MG TAB PO SCH (09:00)
[2019-08-30] MEDS ORDERED: ASPIRIN 81 MG TAB.CHEW PO SCH (09:00)
--- NOTE | 2019-08-30 09:00 | NUR ---
PT RESTING IN BED. PT IS STABLE, RESPIRATION ARE EVEN AND UNLABORED ON ROOM AIR. CALL LIGHT WITHIN REACH.
[2019-08-30] MEDS ORDERED: MAG SULF 2000 MG/WATER PREMIX 50 ML IV SCH (11:00)
[2019-08-30 12:00] VITALS: BP 111/60
--- NOTE | 2019-08-30 12:10 | NUR ---
PT IN BED EATING LUNCH. IV RUNNING NS AT 100 ML/HR. PT IS STABLE, RESPIRATION ARE EVEN AND UNLABORED. CALL LIGHT WITHIN REACH.
[2019-08-30] MEDS ORDERED: GAUZE TP SCH (13:00)
--- NOTE | 2019-08-30 13:40 | NUR ---
SW IN ROOM WITH PT. EMPTY URINAL OF 500ML, YELLOW URINE. PT IS STABLE, RESPIRATIONS ARE EVEN AND UNLABORED ON ROOM AIR. CALL LIGHT WITHIN REACH.
--- NOTE | 2019-08-30 14:29 | NUR ---
Bonding Machine Setter Note: Basic Screen: Yes High Risk DC Screen Yes Name: NONE Pre-Admission Living Arrangements: Other Other: HOMELESS Prior ADL Independent Current Home Health Name/Tel: N/A Current DME/02 Name/Tel: N/A Current Hospice Name/Tel: N/A Current Dialysis Name/Tel: N/A Healthcare Decision Maker: Patient Advance Directive No - REFUSED Physician Orders for Life Sustaining Treatment Form No Patient/Family Have Educational Needs No Information Taught: Advance Directive Community Resources Person Taught: Patient Teaching Tools: Community Resources Verbal Factors Affecting Learning: None Participation Level: Active Evaluation: Verbalizes Understanding Needs Additional Education: No Discipline: Case Mgt/Social Svcs Tentative Discharge Plan/Destination: No Needs Identified Will require assistance post discharge: No Referred to [facility]: No Tentative Discharge Plan Summary: Patient is a 69-year-old male admitted for chest pain and pleural effusion. Patient has PMHX of testicular cancer, lung cancer, CHF, CAD S/O, AICD, and pacemaker. Patient is homeless. SW verified demographics with patient. Patient stated he has no emergency contact and has history of homelessness for 1 year. SW asked patient if he is receiving any government aid. Patient stated he lost his ID and is unable to receive SSI. SW informed patient that he can go to social security office in order to complete SSI process. SW provided homeless resources to patient. Patient reports no mental health history and no substance abuse history. Patient stated that he will begin calling resources on homeless resources packet. Patient's plan after discharge is to arrange living arrangements and find a longterm. SW informed nurse to provide patient weather appropriate clothing and a meal to go at discharge. SW will follow up as needed. Signature: JUDITH Pop Date: Aug 30, 2019 Time: 14:29
--- NOTE | 2019-08-30 15:00 | NUR ---
PT REMOVED THE LEFT ELBOW WRAP. PT STATES IT CAUSES HIM PAIN AND HE WOULD RATHER HAVE THE SITE OPEN TO AIR. INFORMED THE PT THAT HE IS EXPOSING THE AREA TO POSSIBLE INFECTION HE IS IN THE HOSPITAL. PT VOCALIZED UNDERSTANDING THE RISKS AND WANTS HIS LEFT ELBOW HARDWARE PROTRUSION OPEN TO AIR.
--- NOTE | 2019-08-30 15:30 | NUR ---
PT REMOVED LEFT FOREARM IV. EXPLAINED TO PT THAT HE NEEDED IV FOR FLUID. PT STATES, "I'LL DRINK WATER". WILL OFFER TO RE-INSERT AN IV LATER. PT IS STABLE, RESPIRATION ARE EVEN AND UNLABORED ON ROOM AIR.
[2019-08-30 16:00] VITALS: BP 104/56
--- NOTE | 2019-08-30 16:20 | NUR ---
Informed pt that we will need to insert new IV. Pt states he needs to use restroom and will have to do IV insertion later. Encouraged po fluid intake for hydration. Pt verbalized understanding & agree with POC.
--- NOTE | 2019-08-30 18:04 | NUR ---
PT IS IN BED EATING DINNER. PT IS STABLE, CALL LIGHT WITHIN REACH.
--- NOTE | 2019-08-30 19:05 | NUR ---
GAVE REPORT TO NIGHT NURSE. PT WAS ASLEEP IN BED, BUT AWOKE WHEN RNS WALKED INTO THE ROOM. PT IS STABLE, RESPIRATIONS ARE EVEN AND UNLABORED ON ROOM AIR. CALL LIGHT WITHIN REACH.
--- NOTE | 2019-08-30 19:10 | NUR ---
RECEIVED PT ON BED, AAOX4, ABLE TO MAKE NEEDS KNOWN, DENIES ANY PAIN, PT WITH NO IV ACCESS AT THIS TIME, WILL TRY TO PUT IV LINE LATER, PT REFUSED TO WEAR HOSPITAL GOWN, LEFT ELBOW HARDWARE PROTRUSION NOTED, REFUSED SITE TO BE COVERED WITH DRESSING, RISK AND BENEFITS EXPLAINED, PT STILL REFUSING, NO BLEEDING OR DRAINAGE NOTED, PLAN OF CARE DISCUSSED BUT PT WANTS TO REST AT THIS TIME, CALL LIGHT WITHIN REACH.
[2019-08-30 20:00] VITALS: BP 110/61
--- NOTE | 2019-08-30 20:30 | NUR ---
BLOOD SUGAR CHECKED DONE WITH 120 RESULT, NO COVERAGE NEEDED, SNACK PROVIDED, DUE PO MEDICATION ADMINISTERED, PT REFUSED IV START AT THIS TIME STATED I DON'T NEED IT, EDUCATE ON RISK AND BENEFITS OF IVF, STATED LATER, DR LILLY MADE AWARE, STATED "THAT'S FINE", WILL TRY AGAIN LATER, ALL NEEDS ATTENDED.
--- NOTE | 2019-08-30 23:30 | NUR ---
PT SLEEPING, EASILY AROUSABLE, PT FELT ANNOYED WHEN AWAKENED FOR VITAL SIGNS TAKING, PT WENT BACK TO SLEEP AFTERWARDS, CONTINUE TO MONITOR CLOSELY.
--- NOTE | 2019-08-31 00:24 | NUR ---
PT OFF TELE, PT REFUSED TO BE PUT BACK ON TELE, TOLD PT THAT WE NEED TO MONITOR HIS HR DUE TO HIS DX OF CHEST PAIN AND HX OF PACEMAKER, PT SHOUTED "WHO CARES, LEAVE ME ALONE, ILL BE OUT OF HERE TOMORROW MORNING", DR MAXX HENRY MADE AWARE.
[2019-08-31] MEDS: NACL 0.9% 1,000 ML IV SCH (03:16)
[2019-08-31 04:40] VITALS: BP 107/56
--- NOTE | 2019-08-31 04:40 | NUR ---
PT CALLED REQUESTING FOR SANDWICH, PT CALM, VITAL SIGNS TAKEN AND BLOOD SUGAR CHECKED PERFORMED BEFORE SNACK WITH 117 RESULT, CHICKEN SANDWICH AND JUICE PROVIDED, PT STILL REFUSING IV INSERTION, TELE MONITOR AND TO WEAR HOSPITAL GOWN, NOT IN DISTRESS, MONITORED CLOSELY.
[2019-08-31] MEDS: BLOOD GLUCOSE MONITORING 1 DEV DEV FS SCH (06:43)
[2019-08-31 06:51] LABS: BASOPHILS # (AUTO) 0.1 K/uL (0.00-0.22); BASOPHILS % (AUTO) 1.1 % (0.0-2.0); EOSINOPHILS # (AUTO) 0.4 K/uL (0-0.4); EOSINOPHILS % (AUTO) 7.2 % (0.0-4.0); HEMATOCRIT 32.5 % (36-52); HEMOGLOBIN 9.9 g/dL (12.0-18.0); LYMPHOCYTES # (AUTO) 1.1 K/uL (2.0-11.5); MEAN CORPUSCULAR HEMOGLOBIN 23 pg (27-31); MEAN CORPUSCULAR HGB CONC 30 g/dL (33-37); MEAN CORPUSCULAR VOLUME 74.4 fL (80-94); MONOCYTES # (AUTO) 0.4 K/uL (0.8-1.0); MONOCYTES % (AUTO) 7.3 % (1.7-9.3); NEUTROPHILS # (AUTO) 3.7 K/uL (1.8-7.7); NEUTROPHILS % (AUTO) 64.4 % (42.2-75.2); PLATELET COUNT (AUTO) 493 K/uL (140-450); RED BLOOD CELL COUNT(AUTO) 4.37 MIL/uL (4.20-6.10); RED CELL DISTRIBUTION WIDTH 18.2 % (11.6-13.7); WHITE BLOOD COUNT (AUTO) 5.7 K/uL (4.8-10.8)
--- NOTE | 2019-08-31 07:15 | NUR ---
RECEIVED REPORT FROM NIGHT NURSE. PT ASLEEP IN BED. PT WOKE UP WHEN NURSES ENTERED THE ROOM, INFORMED PT OF CHANGE OF SHIFT. PT NOT WEARING HOSPITAL GOWN, NO TELEMONITOR, NO IV SITE. LEFT ELBOW HARDWARE PROTRUSION OPEN TO AIR. NIGHT NURSE INFORMED PT REFUSING IV INSERTION, TELEMONITOR AND GOWN. PT IS STABLE, RESPIRATION AR EVEN AND UNLABORED ON ROOM AIR.
--- NOTE | 2019-08-31 07:17 | NUR ---
PT AWAKE, NO SIGNS OF DISTRESS, REPORT GIVEN TO RN JAYME FOR CONTINUITY OF CARE.
[2019-08-31 07:50] VITALS: BP 106/54
--- NOTE | 2019-08-31 08:01 | NUR ---
TELEMONITOR TECH INFORMED ME PT WAS NOT ON THE MONITOR AND TO CHECK ON THE PT. ASKED THE PT IF I COULD PUT HIM ON THE MONITOR. PT SAID "NO". TOOK THE TELEMONITOR AND GAVE IT BACK TO THE TECH PT IS REFUSING TELE MONITOR.
--- NOTE | 2019-08-31 08:05 | NUR ---
PT IN BED EATING BREAKFAST. PT IS STABLE, RESPIRATION ARE EVEN AND UNLABORED ON ROOM AIR.
--- NOTE | 2019-08-31 08:15 | NUR ---
CHARGE NURSE SAW PT WALKING OUT OF THE ROOM, LEAVING UNIT. ASKED PT WHERE HE WAS GOING, PT STATES HE WANTS TO LEAVE AGAINST MEDICAL ADVICE. EXPLAINED RISK TO PT, INCLUDING IF HE LEAVES AMA. BUT PT INSIST ON LEAVING AND WOULD NOT WAIT FOR PHYSICIAN. AMA FORM SIGNED. [facility] WE[facility] REGULAR CLOTH[facility], NO IV ACCESS, STABLE CONDITION. DR. MIRELES NOTIFIED OF PT LEAVING AMA. Addendum: 08/31/19 at 0937 by Ade Villarreal RN CLARIFICATION, DR. MCCONNELL, NOTIFIED OF PT LEAVING AMA.
[2019-08-31 08:38] LABS: MAGNESIUM 1.8 mg/dL (1.8-2.4)
[2019-08-31] MEDS ORDERED: MILD SOAP AND WATER TP SCH (09:00)
[2019-08-31] MEDS ORDERED: FERROUS GLUCONATE 324 MG TAB PO SCH (09:00)
[2019-08-31 09:32] LABS: ANION GAP 13.9 (8-16); CARBON DIOXIDE 24.9 mmol/L (21-32); POTASSIUM 3.8 mmol/L (3.5-5.1)
[2019-08-31 09:33] LABS: CREATININE 0.8 mg/dL (0.7-1.3)
--- NOTE | 2019-09-01 10:03 | NUR ---
Wound care consult not done, pt. discharged.
== END 2019-08-31 08:15 | disposition left against medical advice (07) | DRG 880 ==
LOC: MED 18:38 → MTU 21:16
PROVIDERS: ADMIT General Practice; ATTEND General Practice
DX: F41.9 Anxiety disorder, unspecified (principal); E44.0 Moderate protein-calorie malnutrition; J90 Pleural effusion, not elsewhere classified; K21.9 Gastro-esophageal reflux disease without esophagitis; I50.9 Heart failure, unspecified; I25.10 Atherosclerotic heart disease of native coronary artery without angina pectoris; F17.210 Nicotine dependence, cigarettes, uncomplicated; D50.9 Iron deficiency anemia, unspecified; Z53.29 Procedure and treatment not carried out because of patient's decision for other reasons; E11.9 Type 2 diabetes mellitus without complications; Z85.118 Personal history of other malignant neoplasm of bronchus and lung; Z95.810 Presence of automatic (implantable) cardiac defibrillator; Z68.21 Body mass index [BMI] 21.0-21.9, adult; Z91.19 Patient's noncompliance with other medical treatment and regimen; Z90.79 Acquired absence of other genital organ(s); Z90.2 Acquired absence of lung [part of]
CPT/HCPCS: 36415; 73080; 80048; 80053; 80305; 81003; 82948; 83690; 83735; 84100; 84484; 85025; 87081; 93005; 96374; 99284; G0482; J2270; J3475; J7030; Q0092